=== PATIENT | male | born 1975 | race Caucasian/White ===

== ENCOUNTER → 2019-07-19 | Outpatient (CLI) | payer OTHER | LOC: M.MRI 07-12 08:17 | DX: S46.211A Strain of muscle, fascia and tendon of other parts of biceps, right arm, initial encounter (principal); M75.21 Bicipital tendinitis, right shoulder; M71.521 Other bursitis, not elsewhere classified, right elbow; M47.812 Spondylosis without myelopathy or radiculopathy, cervical region; M25.78 Osteophyte, vertebrae; M48.02 Spinal stenosis, cervical region; M50.221 Other cervical disc displacement at C4-C5 level; X58.XXXA Exposure to other specified factors, initial encounter; Y93.89 Activity, other specified; Y92.89 Other specified places as the place of occurrence of the external cause; Y99.8 Other external cause status ==